=== PATIENT | male | born 1980 | race Caucasian/White ===

== ENCOUNTER 2017-01-16 22:31 | Emergency (ER) | payer MEDICAID ==
[~2017-01-16] VITALS: Ht 180.3 cm; Wt 83.9 kg
--- NOTE | 2017-01-16 22:54 | NUR ---
DR. QUINTANA AT BEDSIDE FOR MSE.
[2017-01-16] MEDS ORDERED: ASPIRIN 325 MG TABLET PO ONE (23:15)
[2017-01-16 23:18] LABS: BASOPHILS % (AUTO) 0.6 % (0.0-2.0); EOSINOPHILS # (AUTO) 0.1 K/uL (0.0-0.7); EOSINOPHILS % (AUTO) 1.3 % (0.0-7.0); HEMOGLOBIN 15.5 G/DL (14.0-18.0); LYMPHOCYTES # (AUTO) 1.7 K/UL (0.8-4.8); LYMPHOCYTES % (AUTO) 29.8 % (20.5-51.5); MEAN CORPUSCULAR HEMOGLOBIN 28.6 UUG (27.0-31.0); MEAN CORPUSCULAR HGB CONC 34 g/dL (32.0-37.0); MEAN CORPUSCULAR VOLUME 84.9 FL (82.0-92.0); MONOCYTES # (AUTO) 0.5 K/UL (0.1-1.30); MONOCYTES % (AUTO) 8.1 % (0.0-11.0); NEUTROPHILS # (AUTO) 3.6 K/UL (1.8-8.9); NEUTROPHILS % (AUTO) 60.2 % (38.5-71.5); PLATELET COUNT (AUTO) 203 K/UL (150-450); RED BLOOD CELL COUNT(AUTO) 5.41 MIL/UL (4.7-6.1); WHITE BLOOD COUNT (AUTO) 5.9 K/UL (4.0-11.2)
[2017-01-16] MEDS ORDERED: ASPIRIN 325 MG TABLET ONE (23:22)
[2017-01-16 23:24] LABS: CREATININE 1.1 mg/dL (0.6-1.3); POTASSIUM 3.8 mmol/L (3.5-5.1)
[2017-01-17 00:06] VITALS: BP 137/81
== END 2017-01-17 00:07 | disposition home or self-care (01) ==
LOC: ER 22:34
DX: H93.3X9 Disorders of unspecified acoustic nerve (principal); R07.89 Other chest pain
CPT/HCPCS: 36415; 71010; 80048; 84484; 85025; 93005; 99285; A4663; 70030-TC